=== PATIENT | female | born 1985 | race American Indian/Alaskan Native ===

== ENCOUNTER 2020-04-06 16:45 | Inpatient (IN) | payer SELFPAY ==
[2020-04-06] MEDS ORDERED: MORPHINE 4 MG/1 ML INJ IV ONE (21:07)
--- NOTE | 2020-04-06 21:19 | Emergency Department Report ---
HPI - General Chief Complaint: Chest Pain Time Seen by Provider: 04/06/20 20:58 - HPI HPI: This is a 34-year-old -[place] Citizen female who presents to the emergency department via EMS with a complaint of "pain all over" that has been going on for the past 2 weeks. It is associated with some shortness of breath. Patient denies any fever, vomiting, diarrhea, rash, headache. She has not taken anything for symptoms prior to presentation. She has a history of kwq-udjwkhh-avqbwzzif diabetes, GERD. She is a tobacco smoker but denies any illicit drug use. She does not have a primary care physician. No recent travel or sick contacts at home. Patient says that she was recently at [facility] for "a heart attack." No known aggravating or alleviating factors. ED Past Medical Hx - Past Medical History Previous Medical History?: Yes Hx Hypertension: Yes Hx Congestive Heart Failure: No Hx Diabetes: Yes Hx Asthma: No Hx COPD: No Hx HIV: No Additional medical history: gastroparesis - Surgical History Past Surgical History?: No - Social History Smoking Status: Current Every Day Smoker - Medications Home Medications: Home Medications Medication Instructions Recorded Confirmed Last Taken Type Promethazine [Phenergan] 25 mg PO Q6H PRN #10 tablet 09/21/13 09/25/13 09/22/13 Rx Ondansetron [Zofran Odt] 8 mg PO TID PRN #7 tab.rapdis 09/25/13 Unknown Rx Potassium Chloride [K-Dur] 10 meq PO QDAY #7 tablet 09/25/13 Unknown Rx Promethazine [Phenergan] 25 mg PO Q6H PRN #10 tablet 09/25/13 Unknown Rx Promethazine [Phenergan] 25 mg [place] QHS PRN #30 supp.rect 09/27/13 Unknown Rx levoFLOXacin [Levaquin TAB] 500 mg PO QDAY #7 tablet 09/27/13 Unknown Rx Naproxen [Naprosyn] 375 mg PO BID #20 tablet 10/09/13 Unknown Rx HYDROcodone/APAP 10-325 [[place] 1 each PO Q6HR PRN #20 tablet 10/18/13 Unknown Rx 10-325 mg TAB] Promethazine [Phenergan] 25 mg PO Q6H PRN #20 tablet 10/18/13 Unknown Rx oxyCODONE /ACETAMINOPHEN [Percocet 1 tab PO Q6HR PRN #14 tablet 12/09/13 Unknown Rx 5/325] Hyoscyamine Subl [Levsin Sl 0.125 0.125 mg SL Q6HR PRN #10 tablet 05/30/14 Unknown Rx TAB] Ondansetron [Zofran Odt] 4 mg PO Q6H PRN #10 tab.rapdis 05/30/14 Unknown Rx Pantoprazole [Protonix TAB] 40 mg PO QDAY #30 tablet 05/30/14 Unknown Rx Promethazine [Phenergan] 25 mg PO Q6H PRN #20 tablet 05/30/14 Unknown Rx metFORMIN [Glucophage] 500 mg PO BID #60 tablet 05/30/14 Unknown Rx oxyCODONE /ACETAMINOPHEN [Percocet 1 tab PO Q6HR PRN #10 tablet 05/30/14 Unknown Rx 5/325 mg] HYDROcodone/APAP 5-325 [[place] 1 each PO Q6HR PRN #14 tablet 07/12/14 Unknown Rx 5/325] ED Review of Systems ROS: Stated complaint: CHEST PAIN Other details as noted in HPI Comment: All other systems reviewed and negative Constitutional: denies: chills, fever Eyes: denies: eye pain, vision change ENT: denies: ear pain, throat pain Respiratory: shortness of breath. denies: cough Cardiovascular: chest pain. denies: edema Gastrointestinal: abdominal pain. denies: vomiting Genitourinary: denies: dysuria, discharge Musculoskeletal: back pain, myalgia. denies: joint swelling Skin: denies: rash, lesions Neurological: denies: weakness, numbness Physical Exam - Physical Exam Vital Signs: Vital Signs 04/06/20 21:06 Temperature 97.6 F Pulse Rate 102 H Respiratory 28 H Rate Blood Pressure 144/118 [Left] O2 Sat by Pulse 100 Oximetry Physical Exam: GENERAL: Patient is ill-appearing. HENT: Normocephalic. Atraumatic. Patient has moist mucous membranes. EYES: Extraocular motions are intact. Pupils equal reactive to light bilaterally. NECK: Supple. Trachea is midline. CHEST/LUNGS: Clear to auscultation. There is tachypnea with some accessory muscle use. HEART/CARDIOVASCULAR: Regular. There is mild tachycardia. There is no murmur. ABDOMEN: Abdomen is soft, nontender. Patient has normal bowel sounds. SKIN: Skin is warm and dry. NEURO: The patient is very sleepy but is otherwise easily arousable. Once awake she is alert and oriented, AAO x3. The patient has no focal neurologic deficits. Normal speech. MUSCULOSKELETAL: There is no tenderness or deformity. There is no limitation range of motion. ED Course Vital Signs 04/06/20 21:06 Temperature 97.6 F Pulse Rate 102 H Respiratory 28 H Rate Blood Pressure 144/118 [Left] O2 Sat by Pulse 100 Oximetry - Reevaluation(s) Reevaluation #1: 04/06/20 22:23 Nursing staff has tried multiple times to get a peripheral IV. I also looked with a ultrasound to both the bilateral upper extremities as well as looking for an EJ and I was unsuccessful. The patient has tachypnea, some borderline hypotension and is ill-appearing needing resuscitation. I have spoken with the patient in detail and gotten written consent for a central venous catheter placement. - Consultations Consultation #1: 04/07/20 01:03 I spoke to the environmental compliance technician on-call, Dr. Perez, regarding the patient's repeat EKG. There were some nonspecific ST elevations to the inferior leads without any other reciprocal changes. He agrees that this does not appear consistent with an ST elevation NM or require Internet Developer activation. He agrees with the plan for heparin and they will see the patient as a consult. - Central Line Placement Right IJ Consent Obtained: verbal consent, written consent Time Out Performed: Yes Patient Placed on Monitor/Pulse Ox: Yes MD Prep: mask, gown, gloves Central Line Prep: Chlorhexidine scrub Local Anesthesia Used: Lidocaine 1% Amount of Anesthesia Used (mls): 2 Ultrasound Used for Placement: Yes Central Line Lumen Inserted: triple Bloods Obtained for Lab: Yes Central Line Position: good blood return, all ports aspirated, flus, sutured in place with 2-0, sutured in place with nyl Post Procedure X-Ray: other (Catheter appears to be going to the ipsilateral subclavian vein) Patient Tolerated Procedure: well Complications: catheter malposition Right Femoral Consent Obtained: verbal consent, written consent Time Out Performed: Yes Patient Placed on Monitor/Pulse Ox: Yes Prep: mask, gown, gloves Central Line Prep: Chlorhexidine scrub Local Anesthesia Used: Lidocaine 1% Amount of Anesthesia Used (mls): 2 Ultrasound Used for Placement: Yes Central Line Lumen Inserted: triple Bloods Obtained for Lab: No Central Line Position: good blood return, all ports aspirated, flus, sutured in place with nyl Dressing Applied: Tegaderm, sterile gauze/tape Patient Tolerated Procedure: well Complications: none ED Medical Decision Making - Lab Data Result diagrams: 04/06/20 22:57 04/07/20 01:00 Lab Results 04/06/20 04/06/20 04/06/20 Range/Units 21:10 22:57 22:57 WBC 27.7 H (4.5-11.0) K/mm3 RBC 2.82 L (3.65-5.03) M/mm3 Hgb 8.3 L (10.1-14.3) gm/dl Hct 26.1 L (30.3-42.9) % MCV 93 (79-97) fl MCH 29 (28-32) pg MCHC 32 (30-34) % RDW 18.2 H (13.2-15.2) % Plt Count 423 (140-440) K/mm3 PT 16.2 H (12.2-14.9) Sec. INR 1.30 H (0.87-1.13) APTT 31.3 (24.2-36.6) Sec. D-Dimer 5535.12 H (0-234) ng/mlDDU VBG pH (7.320-7.420) Sodium (137-145) mmol/L Potassium (3.6-5.0) mmol/L Chloride (98-107) mmol/L Carbon Dioxide (22-30) mmol/L Anion Gap mmol/L BUN (7-17) mg/dL Creatinine (0.6-1.2) mg/dL Estimated GFR ml/min BUN/Creatinine Ratio % Glucose (65-100) mg/dL POC Glucose 533 H (70-105) mg/dL Ketones Quantitative (Negative) Calcium (8.4-10.2) mg/dL Phosphorus (2.5-4.5) mg/dL Magnesium (1.7-2.3) mg/dL Total Bilirubin (0.1-1.2) mg/dL AST (5-40) units/L ALT (7-56) units/L Alkaline Phosphatase (35-129) units/L Troponin T (0.00-0.029) ng/mL Total Protein (6.3-8.2) g/dL Albumin (3.9-5) g/dL Albumin/Globulin Ratio % Triglycerides (2-149) mg/dL Cholesterol (50-199) mg/dL LDL Cholesterol Direct (50-130) mg/dL HDL Cholesterol (40-59) mg/dL Cholesterol/HDL Ratio % Lipase (13-60) units/L HCG, Qual (Negative) Plasma/Serum Alcohol (0-0.07) % 04/06/20 04/06/20 04/06/20 Range/Units 22:57 22:57 22:57 WBC (4.5-11.0) K/mm3 RBC (3.65-5.03) M/mm3 Hgb (10.1-14.3) gm/dl Hct (30.3-42.9) % MCV (79-97) fl MCH (28-32) pg MCHC (30-34) % RDW (13.2-15.2) % Plt Count (140-440) K/mm3 PT (12.2-14.9) Sec. INR (0.87-1.13) APTT (24.2-36.6) Sec. D-Dimer (0-234) ng/mlDDU VBG pH (7.320-7.420) Sodium 125 L (137-145) mmol/L Potassium 3.6 (3.6-5.0) mmol/L Chloride 91.6 L (98-107) mmol/L Carbon Dioxide 3 L* (22-30) mmol/L Anion Gap 34 mmol/L BUN 33 H (7-17) mg/dL Creatinine 2.0 H (0.6-1.2) mg/dL Estimated GFR 35 ml/min BUN/Creatinine Ratio 17 % Glucose 593 H* (65-100) mg/dL POC Glucose (70-105) mg/dL Ketones Quantitative (Negative) Calcium 8.6 (8.4-10.2) mg/dL Phosphorus (2.5-4.5) mg/dL Magnesium (1.7-2.3) mg/dL Total Bilirubin 0.30 (0.1-1.2) mg/dL AST 11 (5-40) units/L ALT 14 (7-56) units/L Alkaline Phosphatase 94 (35-129) units/L Troponin T 0.343 H* (0.00-0.029) ng/mL Total Protein 7.1 (6.3-8.2) g/dL Albumin 2.5 L (3.9-5) g/dL Albumin/Globulin Ratio 0.5 % Triglycerides 138 (2-149) mg/dL Cholesterol 99 (50-199) mg/dL LDL Cholesterol Direct 40 L (50-130) mg/dL HDL Cholesterol 23 L (40-59) mg/dL Cholesterol/HDL Ratio 4.30 % Lipase 27 (13-60) units/L HCG, Qual Negative (Negative) Plasma/Serum Alcohol < 0.01 (0-0.07) % 04/06/20 04/06/20 04/07/20 Range/Units 22:57 22:57 01:00 WBC (4.5-11.0) K/mm3 RBC (3.65-5.03) M/mm3 Hgb (10.1-14.3) gm/dl Hct (30.3-42.9) % MCV (79-97) fl MCH (28-32) pg MCHC (30-34) % RDW (13.2-15.2) % Plt Count (140-440) K/mm3 PT (12.2-14.9) Sec. INR (0.87-1.13) APTT (24.2-36.6) Sec. D-Dimer (0-234) ng/mlDDU VBG pH 7.059 L* (7.320-7.420) Sodium (137-145) mmol/L Potassium (3.6-5.0) mmol/L Chloride (98-107) mmol/L Carbon Dioxide (22-30) mmol/L Anion Gap mmol/L BUN (7-17) mg/dL Creatinine (0.6-1.2) mg/dL Estimated GFR ml/min BUN/Creatinine Ratio % Glucose (65-100) mg/dL POC Glucose (70-105) mg/dL Ketones Quantitative Large (Negative) Calcium (8.4-10.2) mg/dL Phosphorus (2.5-4.5) mg/dL Magnesium (1.7-2.3) mg/dL Total Bilirubin (0.1-1.2) mg/dL AST (5-40) units/L ALT (7-56) units/L Alkaline Phosphatase (35-129) units/L Troponin T 0.338 H* (0.00-0.029) ng/mL Total Protein (6.3-8.2) g/dL Albumin (3.9-5) g/dL Albumin/Globulin Ratio % Triglycerides (2-149) mg/dL Cholesterol (50-199) mg/dL LDL Cholesterol Direct (50-130) mg/dL HDL Cholesterol (40-59) mg/dL Cholesterol/HDL Ratio % Lipase (13-60) units/L HCG, Qual (Negative) Plasma/Serum Alcohol (0-0.07) % 04/07/20 04/07/20 Range/Units 01:00 01:00 WBC (4.5-11.0) K/mm3 RBC (3.65-5.03) M/mm3 Hgb (10.1-14.3) gm/dl Hct (30.3-42.9) % MCV (79-97) fl MCH (28-32) pg MCHC (30-34) % RDW (13.2-15.2) % Plt Count (140-440) K/mm3 PT (12.2-14.9) Sec. INR (0.87-1.13) APTT (24.2-36.6) Sec. D-Dimer (0-234) ng/mlDDU VBG pH (7.320-7.420) Sodium 128 L (137-145) mmol/L Potassium 3.6 (3.6-5.0) mmol/L Chloride 94.7 L (98-107) mmol/L Carbon Dioxide 4 L* (22-30) mmol/L Anion Gap 33 mmol/L BUN 30 H (7-17) mg/dL Creatinine 2.1 H (0.6-1.2) mg/dL Estimated GFR 33 ml/min BUN/Creatinine Ratio 14 % Glucose 585 H* (65-100) mg/dL POC Glucose (70-105) mg/dL Ketones Quantitative (Negative) Calcium 7.9 L (8.4-10.2) mg/dL Phosphorus 6.30 H (2.5-4.5) mg/dL Magnesium 2.00 (1.7-2.3) mg/dL Total Bilirubin (0.1-1.2) mg/dL AST (5-40) units/L ALT (7-56) units/L Alkaline Phosphatase (35-129) units/L Troponin T (0.00-0.029) ng/mL Total Protein (6.3-8.2) g/dL Albumin (3.9-5) g/dL Albumin/Globulin Ratio % Triglycerides (2-149) mg/dL Cholesterol (50-199) mg/dL LDL Cholesterol Direct (50-130) mg/dL HDL Cholesterol (40-59) mg/dL Cholesterol/HDL Ratio % Lipase (13-60) units/L HCG, Qual (Negative) Plasma/Serum Alcohol (0-0.07) % - EKG Data -: EKG Interpreted by Me EKG shows normal: sinus rhythm (PVC), axis, intervals (Prolonged QTC), QRS complexes, ST-T waves Rate: normal - EKG Data When compared to previous EKG there are: no significant change Interpretation: unchanged when compared t (07/12/14) - Radiology Data Radiology results: report reviewed CHEST 1 VIEW [id number] INDICATION / CLINICAL INFORMATION: CP, line placement COMPARISON: 07/12/2014 FINDINGS: SUPPORT DEVICES: Right jugular central line is noted with progression bilaterally in the subclavian vein into the right axillary vein region. The physician is aware of this placement per the te chnologist. HEART / MEDIASTINUM: Stable LUNGS / PLEURA: Very poor degree of inspiration is seen. Congested appearance is noted and mild bilateral interstitial edema/infiltrates are seen. Right basilar atelectatic changes are noted. No pneumothorax. ADDITIONAL FINDINGS: No significant additional findings. - Medical Decision Making This patient presents to the emergency department with a complaint of pain everywhere. As part of that complaint, the patient has been having some generalized chest pain over the past 2 weeks. However the patient also mentions that she was recently admitted to [facility] for a heart attack. Patient said that she had a stent placement but is unable to tell me which artery was stented. The patient had an Accu-Chek upon arrival of about 550. We had some difficulty placing a peripheral IV. The patient had some borderline hypotension and I have suspicion the patient was in diabetic ketoacidosis, so the decision was made to place a central venous catheter for resuscitation. As per the procedure section, I placed a right IJ CVC, but the catheter went to the ipsilateral subclavian vein towards the axillary venous system. After this, I placed a right femoral CVC. The right IJ CVC was removed and pressure held. The patient's blood work shows a leukocytosis of 27,000. There is renal insufficiency with a creatinine of 2 and a GFR of about 35. The patient is in diabetic ketoacidosis with a blood sugar of about 590, and anion gap of 34, venous acidosis, and large serum ketones. The patient has been started on an insulin drip. The patient's first troponin came back elevated at 0.343. I spoke to [facility] cardiology regarding the patient's EKG but it did not appear to be a STEMI and require Internet Developer activation. However, with the elevated troponin the patient will be started on heparin. The patient will be admitted to the ICU and has been accepted for admission by the hospitalist, Dr. Rosas. Critical Care Time: Yes Critical care time in (mins) excluding proc time.: 45 Critical care attestation.: If time is entered above; I have spent that time in minutes in the direct care of this critically ill patient, excluding procedure time. Critical care time was spent on this patient in doing her initial evaluation, multiple reevaluations, ordering and interpretation of labs and imaging, insulin drip for her DKA, heparin for her NSTEMI, multiple discussions with the patient. This does not include the time spent doing the central line procedures. Critical Care Time: 45 minutes ED Disposition Clinical Impression: NSTEMI (non-ST elevated myocardial infarction), Renal insufficiency DKA (diabetic ketoacidoses) Qualifiers: Diabetes mellitus type: type 2 Diabetes mellitus complication detail: without coma Qualified Code(s): E11.10 - Type 2 diabetes mellitus with ketoacidosis without coma Disposition: OP ADMIT IP TO THIS HOSP Is pt being admited?: Yes Condition: Serious Time of Disposition: 01:04 HEART Score - HEART Score History: Slightly suspicious EKG: Non-specific Age: < 45 Risk factors: > 3 risk factors or hx of atherosclerotic disease Troponin: > 3x normal limit HEART Score: 5 - Critical Actions Critical Actions: 4-6 pts:12-16.6% risk of adverse cardiac event. Should be admitted
[2020-04-06] MEDS ORDERED: SODIUM CHLORIDE 0.9% 1000 ML 1,000 ML IV ONE (22:56)
[2020-04-06] MEDS ORDERED: MORPHINE 4 MG/1 ML INJ IM ONE (23:31)
[2020-04-06 23:51] LABS: Hematocrit 26.1 % (30.3-42.9); Hemoglobin 8.3 gm/dl (10.1-14.3); Mean Corpuscular HGB Conc 32 % (30-34); Mean Corpuscular Volume 93 fl (79-97); Platelet Count 423 K/mm3 (140-440); Red Blood Count 2.82 M/mm3 (3.65-5.03); Red Cell Distribution Width 18.2 % (13.2-15.2)
[2020-04-07 00:02] LABS: INR 1.3 (0.87-1.13)
[2020-04-07 00:03] LABS: Partial Thromboplastin Time 31.3 Sec. (24.2-36.6)
--- NOTE | 2020-04-07 00:06 | XRay Report ---
CHEST 1 VIEW 0155 INDICATION / CLINICAL INFORMATION: CP, line placement COMPARISON: 07/12/2014 FINDINGS: SUPPORT DEVICES: Right jugular central line is noted with progression bilaterally in the subclavian v ein into the right axillary vein region. The physician is aware of this placement per the technologis t. HEART / MEDIASTINUM: Stable LUNGS / PLEURA: Very poor degree of inspiration is seen. Congested appearance is noted and mild bilat eral interstitial edema/infiltrates are seen. Right basilar atelectatic changes are noted. No pneumot horax. ADDITIONAL FINDINGS: No significant additional findings. Signer Name: Flo Israel MD Signed: 04/07/2020 12:01 AM Workstation Name: [id number]
[2020-04-07 00:14] LABS: Albumin 2.5 g/dL (3.9-5); Calcium 8.6 mg/dL (8.4-10.2)
[2020-04-07] MEDS ORDERED: HEPARIN 10,000 UNITS/10 ML VIAL IV ONE ×2 (00:59→18:00)
[2020-04-07] MEDS ORDERED: INSULIN REGULAR, HUMAN 100 UNITS in SODIUM CHLORIDE 0.9% 99 ML IV SCH (01:00)
[2020-04-07] MEDS ORDERED: HEPARIN/ 0.45% NACL DRIP 25,000 UNIT/500 ML BAG IV SCH (01:00)
[2020-04-07 01:25] LABS: Calcium 7.9 mg/dL (8.4-10.2)
[2020-04-07] MEDS ORDERED: DEXTROSE 50% IN WATER (25GM) 50 ML SYRINGE IV PRN (02:05)
[2020-04-07] MEDS ORDERED: NITROGLYCERIN 0.4 MG TAB SUBL SL PRN (02:05)
[2020-04-07] MEDS ORDERED: ACETAMINOPHEN 325 MG TAB PO PRN (02:05)
[2020-04-07] MEDS ORDERED: MORPHINE 2 MG/1 ML INJ IV PRN (02:05)
--- NOTE | 2020-04-07 02:31 | History and Physical Report ---
History of Present Illness Date of examination: 04/07/20 Date of admission: 04/07/20 01:04 Chief complaint: 04/07/2020 History of present illness: 34-year-old -Swiss female with known history of diabetes mellitus, hypertension and history of gastroparesis presented to the emergency room today complaining of generalized body aches and pain which has been ongoing for about 2 weeks. She has also been having some shortness of breath but denies any cough. She denies any fever or chills, no nausea vomiting, no diarrhea, no headache or dizziness. Patient denies any sick contacts, no recent travel. She also indicates that she was recently at [facility] where she indicates that she recently had a heart attack. She also indicates that she had a cardiac stent. Work-up in the emergency room today reveals elevated troponin of 0.343. Patient was also found to be in DKA. Entertainment Usher-Dr. Perez was consulted by the ER physician. Patient has been started on heparin drip. Past History Past Medical History: diabetes, hypertension, other (Gastroparesis) Past Surgical History: No surgical history Social history: smoking (Current daily smoker) Family history: no significant family history Medications and Allergies Allergies Allergy/AdvReac Type Severity Reaction Status Date / Time No Known Allergies Allergy Verified 10/09/13 13:11 Home Medications Medication Instructions Recorded Confirmed Last Taken Type Promethazine [Phenergan] 25 mg PO Q6H PRN #10 tablet 09/21/13 09/25/13 09/22/13 Rx Ondansetron [Zofran Odt] 8 mg PO TID PRN #7 tab.rapdis 09/25/13 Unknown Rx Potassium Chloride [K-Dur] 10 meq PO QDAY #7 tablet 09/25/13 Unknown Rx Promethazine [Phenergan] 25 mg PO Q6H PRN #10 tablet 09/25/13 Unknown Rx Promethazine [Phenergan] 25 mg KS QHS PRN #30 supp.rect 09/27/13 Unknown Rx levoFLOXacin [Levaquin TAB] 500 mg PO QDAY #7 tablet 09/27/13 Unknown Rx Naproxen [Naprosyn] 375 mg PO BID #20 tablet 10/09/13 Unknown Rx HYDROcodone/APAP 10-325 [[place] 1 each PO Q6HR PRN #20 tablet 10/18/13 Unknown Rx 10-325 mg TAB] Promethazine [Phenergan] 25 mg PO Q6H PRN #20 tablet 10/18/13 Unknown Rx oxyCODONE /ACETAMINOPHEN [Percocet 1 tab PO Q6HR PRN #14 tablet 12/09/13 Unknown Rx 5/325] Hyoscyamine Subl [Levsin Sl 0.125 0.125 mg SL Q6HR PRN #10 tablet 05/30/14 Unknown Rx TAB] Ondansetron [Zofran Odt] 4 mg PO Q6H PRN #10 tab.rapdis 05/30/14 Unknown Rx Pantoprazole [Protonix TAB] 40 mg PO QDAY #30 tablet 05/30/14 Unknown Rx Promethazine [Phenergan] 25 mg PO Q6H PRN #20 tablet 05/30/14 Unknown Rx metFORMIN [Glucophage] 500 mg PO BID #60 tablet 05/30/14 Unknown Rx oxyCODONE /ACETAMINOPHEN [Percocet 1 tab PO Q6HR PRN #10 tablet 05/30/14 Unknown Rx 5/325 mg] HYDROcodone/APAP 5-325 [[place] 1 each PO Q6HR PRN #14 tablet 07/12/14 Unknown Rx 5/325] Active Meds: Active Medications Insulin Human Regular 100 (units/ Sodium Chloride) 100 mls @ 1 mls/hr IV TITR DENISE; Protocol Last Admin: 04/07/20 01:14 Dose: 1 units/hr, 1 mls/hr Documented by: Heparin Sodium/Sodium Chloride (Heparin/ 0.45% Nacl-25,000 Unit/500 Ml) 25,000 unit in 500 mls @ 20 mls/hr IV TITRATE DENISE; Protocol Last Admin: 04/07/20 01:56 Dose: 1,000 units/hr, 20 mls/hr Documented by: Review of Systems Constitutional: fatigue, no fever, no chills Ears, nose, mouth and throat: no nasal congestion, no sore throat Cardiovascular: chest pain, no palpitations Respiratory: no cough, no shortness of breath Gastrointestinal: abdominal pain, no nausea, no vomiting, no diarrhea Genitourinary Female: no pelvic pain, no flank pain, no dysuria, no hematuria Musculoskeletal: no neck pain, no low back pain Integumentary: no rash, no pruritis Neurological: no headaches, no confusion Psychiatric: no anxiety, no depression Exam - Constitutional Vitals: Temp Pulse Resp BP Pulse Ox 97.6 F 96 H 40 H 116/66 100 04/06/20 21:06 04/07/20 01:15 04/07/20 01:15 04/07/20 01:15 04/07/20 01:15 General appearance: Present: no acute distress, well-nourished - EENT Eyes: Present: PERRL, EOM intact. Absent: scleral icterus ENT: hearing intact, clear oral mucosa, dentition normal - Neck Neck: Present: supple, normal ROM - Respiratory Respiratory effort: normal Respiratory: bilateral: CTA - Cardiovascular Rhythm: regular Heart Sounds: Present: S1 & S2. Absent: gallop, systolic murmur, diastolic murmur, rub - Extremities Extremities: no ischemia, pulses intact, pulses symmetrical, No edema, Full ROM Peripheral Pulses: within normal limits - Abdominal General gastrointestinal: Present: soft, non-tender, non-distended, normal bowel sounds. Absent: mass - Integumentary Integumentary: Present: clear, warm, dry. Absent: rash - Musculoskeletal Musculoskeletal: strength equal bilaterally - Psychiatric Psychiatric: appropriate mood/affect, intact judgment & insight, memory intact, cooperative - Neurologic Neurologic: CNII-XII intact, no focal deficits, moves all extremities HEART Score - HEART Score History: Moderately suspicious EKG: Non-specific Age: < 45 Risk factors: > 3 risk factors or hx of atherosclerotic disease Troponin: Troponin T 0.338 ng/mL (0.00-0.029) H* 04/07/20 01:00 Troponin: > 3x normal limit HEART Score: 6 Results - Labs CBC & Chem 7: 04/07/20 02:57 04/07/20 02:57 Labs: Abnormal lab results 04/06/20 04/06/20 04/06/20 Range/Units 21:10 22:57 22:57 WBC 27.7 H (4.5-11.0) K/mm3 RBC 2.82 L (3.65-5.03) M/mm3 Hgb 8.3 L (10.1-14.3) gm/dl Hct 26.1 L (30.3-42.9) % RDW 18.2 H (13.2-15.2) % PT 16.2 H (12.2-14.9) Sec. INR 1.30 H (0.87-1.13) D-Dimer 5535.12 H (0-234) ng/mlDDU VBG pH (7.320-7.420) Sodium (137-145) mmol/L Chloride (98-107) mmol/L Carbon Dioxide (22-30) mmol/L BUN (7-17) mg/dL Creatinine (0.6-1.2) mg/dL Glucose (65-100) mg/dL POC Glucose 533 H (70-105) mg/dL Calcium (8.4-10.2) mg/dL Phosphorus (2.5-4.5) mg/dL Troponin T (0.00-0.029) ng/mL Albumin (3.9-5) g/dL 04/06/20 04/06/20 04/07/20 Range/Units 22:57 22:57 01:00 WBC (4.5-11.0) K/mm3 RBC (3.65-5.03) M/mm3 Hgb (10.1-14.3) gm/dl Hct (30.3-42.9) % RDW (13.2-15.2) % PT (12.2-14.9) Sec. INR (0.87-1.13) D-Dimer (0-234) ng/mlDDU VBG pH 7.059 L* (7.320-7.420) Sodium 125 L (137-145) mmol/L Chloride 91.6 L (98-107) mmol/L Carbon Dioxide 3 L* (22-30) mmol/L BUN 33 H (7-17) mg/dL Creatinine 2.0 H (0.6-1.2) mg/dL Glucose 593 H* (65-100) mg/dL POC Glucose (70-105) mg/dL Calcium (8.4-10.2) mg/dL Phosphorus (2.5-4.5) mg/dL Troponin T 0.343 H* 0.338 H* (0.00-0.029) ng/mL Albumin 2.5 L (3.9-5) g/dL 04/07/20 04/07/20 04/07/20 Range/Units 01:00 01:00 01:06 WBC (4.5-11.0) K/mm3 RBC (3.65-5.03) M/mm3 Hgb (10.1-14.3) gm/dl Hct (30.3-42.9) % RDW (13.2-15.2) % PT (12.2-14.9) Sec. INR (0.87-1.13) D-Dimer (0-234) ng/mlDDU VBG pH (7.320-7.420) Sodium 128 L (137-145) mmol/L Chloride 94.7 L (98-107) mmol/L Carbon Dioxide 4 L* (22-30) mmol/L BUN 30 H (7-17) mg/dL Creatinine 2.1 H (0.6-1.2) mg/dL Glucose 585 H* (65-100) mg/dL POC Glucose 469 H (70-105) mg/dL Calcium 7.9 L (8.4-10.2) mg/dL Phosphorus 6.30 H (2.5-4.5) mg/dL Troponin T (0.00-0.029) ng/mL Albumin (3.9-5) g/dL Assessment and Plan - Patient Problems (1) DKA (diabetic ketoacidoses) Current Visit: Yes Status: Acute Qualifiers: Diabetes mellitus type: type 2 Diabetes mellitus complication detail: with out coma Qualified Code(s): E11.10 - Type 2 diabetes mellitus with ketoac idosis without coma Plan to address problem: Patient placed on IV fluid and insulin drip. We will monitor Accu-Cheks closely. (2) NSTEMI (non-ST elevated myocardial infarction) Current Visit: Yes Status: Acute Plan to address problem: We will check serial cardiac enzymes. Patient will be placed on aspirin, sublingual nitroglycerin and IV morphine as needed for chest pain. Patient has also been placed on heparin drip. Consult placed to take up operator for further evaluation. (3) Tobacco abuse Current Visit: No Status: Chronic Plan to address problem: Counseled on quitting tobacco abuse. We will offer nicotine patch as needed. (4) DVT prophylaxis Current Visit: No Status: Acute Plan to address problem: Patient currently on heparin drip. (5) Full code status Current Visit: Yes Status: Acute Plan to address problem: Patient is a full code.
[2020-04-07 02:51] LABS: Chol/HDL Ratio 4.3 %
[2020-04-07] MEDS: D5W/0.45% NACL/KCL 20 MEQ 20 MEQ/1,000 ML BAG IV SCH ×2 (03:06→14:13)
[2020-04-07 03:32] LABS: Calcium 8.3 mg/dL (8.4-10.2)
[2020-04-07 03:42] LABS: Hematocrit 26.8 % (30.3-42.9); Hemoglobin 8.1 gm/dl (10.1-14.3); Mean Corpuscular HGB Conc 30 % (30-34); Mean Corpuscular Volume 94 fl (79-97); Platelet Count 416 K/mm3 (140-440); Red Blood Count 2.86 M/mm3 (3.65-5.03); Red Cell Distribution Width 18.4 % (13.2-15.2)
[2020-04-07 04:46] LABS: Total Cells Counted 200
[2020-04-07 04:47] LABS: Anisocytosis 1+; Band Neutrophils # (Manual) 0.6 K/mm3; Eosinophils % (Manual) 1.5 % (0.0-4.3); Platelet Estimate Consistent w Auto
[2020-04-07 06:12] LABS: Calcium 8.1 mg/dL (8.4-10.2)
[2020-04-07 06:41] LABS: Total Cells Counted 200
[2020-04-07 06:42] LABS: Anisocytosis 1+; Band Neutrophils # (Manual) 1.9 K/mm3; Platelet Estimate Consistent w Auto
[2020-04-07 07:55] LABS: Calcium 7.9 mg/dL (8.4-10.2)
[2020-04-07] MEDS: POTASSIUM CHLORIDE 10 MEQ 10 MEQ/100 ML BAG IV SCH ×4 (08:51→14:11)
[2020-04-07] MEDS ORDERED: POTASSIUM CHLORIDE 20 MEQ 20 MEQ/100 ML BAG IV SCH ×2 (09:00→20:00)
--- NOTE | 2020-04-07 11:46 | Progress Note ---
Assessment and Plan Assessment and plan: (1) DKA (diabetic ketoacidoses) Current Visit: Yes Status: Acute Qualifiers: Diabetes mellitus type: type 2 Diabetes mellitus complication detail: without coma Qualified Code(s): E11.10 - Type 2 diabetes mellitus with ketoacidosis without coma Plan to address problem: Continue insulin drip Continue IV fluids Monitor BMP. Start subcutaneous insulin once anion gap closes and discontinue insulin drip 2 hours after subacute insulin Repeat electrolytes and aim to keep potassium more than 4. Check magnesium with next BMP (2) NSTEMI (non-ST elevated myocardial infarction) Current Visit: Yes Status: Acute Plan to address problem: Troponin is elevated Cardiology to see Remains on heparin drip (3) Tobacco abuse Current Visit: No Status: Chronic Plan to address problem: Counseled on quitting tobacco abuse. We will offer nicotine patch as needed. (4) DVT prophylaxis Current Visit: No Status: Acute Plan to address problem: Patient currently on heparin drip. (5) Full code status Current Visit: Yes Status: Acute Plan to address problem: Patient is a full code. History Interval history: Patient seen and examined at bedside this morning Patient is lethargic Remains on insulin drip On heparin drip as well for elevated troponin. Cardiology to evaluate. Hospitalist Physical - Physical exam Narrative exam: VITAL SIGNS: Reviewed. GENERAL: Awake HEAD: No signs of head trauma. EYES: Pupils are equal. Extraocular motions intact. MOUTH: Oropharynx is normal. NECK: No adenopathy, no JVD. CHEST: Chest with diminished breath sounds bilaterally. No wheezes, rales, or rhonchi. CARDIAC: normal S1 and S2, without murmurs, gallops, or rubs. ABDOMEN: Soft, slight tenderness on palpation. Bowel sounds positive MUSCULOSKELETAL: No edema NEUROLOGIC EXAM: Alert and oriented x3. No focal neurologic deficits SKIN: No obvious lesions - Constitutional Vitals: Temp Pulse Resp BP Pulse Ox 97.6 F 106 H 37 H 119/64 100 04/06/20 21:06 04/07/20 07:00 04/07/20 07:00 04/07/20 07:00 04/07/20 06:30 HEART Score - HEART Score EKG: Non-specific Age: < 45 Risk factors: > 3 risk factors or hx of atherosclerotic disease Troponin: Troponin T 0.391 ng/mL (0.00-0.029) H* 04/07/20 09:00 Troponin: > 3x normal limit - Critical Actions Critical Actions: 4-6 pts:12-16.6% risk of adverse cardiac event. Should be admitted Results - Labs CBC & Chem 7: 04/07/20 02:57 04/07/20 09:00 Labs: Laboratory Last Values WBC 26.6 K/mm3 (4.5-11.0) H 04/07/20 02:57 RBC 2.86 M/mm3 (3.65-5.03) L 04/07/20 02:57 Hgb 8.1 gm/dl (10.1-14.3) L 04/07/20 02:57 Hct 26.8 % (30.3-42.9) L 04/07/20 02:57 MCV 94 fl (79-97) 04/07/20 02:57 MCH 28 pg (28-32) 04/07/20 02:57 MCHC 30 % (30-34) 04/07/20 02:57 RDW 18.4 % (13.2-15.2) H 04/07/20 02:57 Plt Count 416 K/mm3 (140-440) 04/07/20 02:57 Add Manual Diff Complete 04/07/20 02:57 Total Counted 200 04/07/20 02:57 Seg Neuts % (Manual) 75.0 % (40.0-70.0) H 04/07/20 02:57 Band Neutrophils % 7.0 % 04/07/20 02:57 Lymphocytes % (Manual) 14.0 % (13.4-35.0) 04/07/20 02:57 Monocytes % (Manual) 4.0 % (0.0-7.3) 04/07/20 02:57 Eosinophils % (Manual) 1.5 % (0.0-4.3) 04/06/20 22:57 Nucleated RBC % Not Reportable 04/07/20 02:57 Seg Neutrophils # Man 20.0 K/mm3 (1.8-7.7) H 04/07/20 02:57 Band Neutrophils # 1.9 K/mm3 04/07/20 02:57 Lymphocytes # (Manual) 3.7 K/mm3 (1.2-5.4) 04/07/20 02:57 Abs React Lymphs (Man) 0.0 K/mm3 04/07/20 02:57 Monocytes # (Manual) 1.1 K/mm3 (0.0-0.8) H 04/07/20 02:57 Eosinophils # (Manual) 0.0 K/mm3 (0.0-0.4) 04/07/20 02:57 Basophils # (Manual) 0.0 K/mm3 (0.0-0.1) 04/07/20 02:57 Metamyelocytes # 0.0 K/mm3 04/07/20 02:57 Myelocytes # 0.0 K/mm3 04/07/20 02:57 Promyelocytes # 0.0 K/mm3 04/07/20 02:57 Blast Cells # 0.0 K/mm3 04/07/20 02:57 WBC Morphology Not Reportable 04/07/20 02:57 Hypersegmented Neuts Not Reportable 04/07/20 02:57 Hyposegmented Neuts Not Reportable 04/07/20 02:57 Hypogranular Neuts Not Reportable 04/07/20 02:57 Smudge Cells Not Reportable 04/07/20 02:57 Toxic Granulation Not Reportable 04/07/20 02:57 Toxic Vacuolation Not Reportable 04/07/20 02:57 Dohle Bodies Not Reportable 04/07/20 02:57 Pelger-Huet Anomaly Not Reportable 04/07/20 02:57 Kelvin Rods Not Reportable 04/07/20 02:57 Platelet Estimate Consistent w auto 04/07/20 02:57 Clumped Platelets Not Reportable 04/07/20 02:57 Plt Clumps, EDTA Not Reportable 04/07/20 02:57 Large Platelets Not Reportable 04/07/20 02:57 Giant Platelets Not Reportable 04/07/20 02:57 Platelet Satelliting Not Reportable 04/07/20 02:57 Plt Morphology Comment Not Reportable 04/07/20 02:57 RBC Morphology Not Reportable 04/07/20 02:57 Dimorphic RBCs Not Reportable 04/07/20 02:57 Polychromasia Not Reportable 04/07/20 02:57 Hypochromasia Not Reportable 04/07/20 02:57 Poikilocytosis Not Reportable 04/07/20 02:57 Anisocytosis 1+ 04/07/20 02:57 Microcytosis Not Reportable 04/07/20 02:57 Macrocytosis Not Reportable 04/07/20 02:57 Spherocytes Not Reportable 04/07/20 02:57 Pappenheimer Bodies Not Reportable 04/07/20 02:57 Sickle Cells Not Reportable 04/07/20 02:57 Target Cells Not Reportable 04/07/20 02:57 Tear Drop Cells Not Reportable 04/07/20 02:57 Ovalocytes Not Reportable 04/07/20 02:57 Helmet Cells Not Reportable 04/07/20 02:57 Rosenberg-Glendo Bodies Not Reportable 04/07/20 02:57 [place] Rings Not Reportable 04/07/20 02:57 [place] Cells Not Reportable 04/07/20 02:57 Bite Cells Not Reportable 04/07/20 02:57 Crenated Cell Not Reportable 04/07/20 02:57 Elliptocytes Not Reportable 04/07/20 02:57 Acanthocytes (Spur) Not Reportable 04/07/20 02:57 Rouleaux Not Reportable 04/07/20 02:57 Hemoglobin C Crystals Not Reportable 04/07/20 02:57 Schistocytes Not Reportable 04/07/20 02:57 Malaria parasites Not Reportable 04/07/20 02:57 [place] Bodies Not Reportable 04/07/20 02:57 Hem Pathologist Commnt No 04/07/20 02:57 PT 16.2 Sec. (12.2-14.9) H 04/06/20 22:57 INR 1.30 (0.87-1.13) H 04/06/20 22:57 APTT 31.3 Sec. (24.2-36.6) 04/06/20 22:57 D-Dimer 5535.12 ng/mlDDU (0-234) H 04/06/20 22:57 VBG pH 7.059 (7.320-7.420) L* 04/06/20 22:57 Sodium 128 mmol/L (137-145) L 04/07/20 09:00 Potassium 3.2 mmol/L (3.6-5.0) L 04/07/20 09:00 Chloride 100.1 mmol/L (98-107) 04/07/20 09:00 Carbon Dioxide 10 mmol/L (22-30) L 04/07/20 09:00 Anion Gap 21 mmol/L 04/07/20 09:00 BUN 39 mg/dL (7-17) H 04/07/20 09:00 Creatinine 2.3 mg/dL (0.6-1.2) H 04/07/20 09:00 Estimated GFR 29 ml/min 04/07/20 09:00 BUN/Creatinine Ratio 17 % 04/07/20 09:00 Glucose 279 mg/dL (65-100) H 04/07/20 09:00 POC Glucose 231 mg/dL (70-105) H 04/07/20 09:00 Ketones Quantitative Large (Negative) 04/06/20 22:57 Calcium 8.0 mg/dL (8.4-10.2) L 04/07/20 09:00 Phosphorus 5.00 mg/dL (2.5-4.5) H D 04/07/20 02:57 Magnesium 2.10 mg/dL (1.7-2.3) 04/07/20 02:57 Total Bilirubin 0.30 mg/dL (0.1-1.2) 04/06/20 22:57 AST 11 units/L (5-40) 04/06/20 22:57 ALT 14 units/L (7-56) 04/06/20 22:57 Alkaline Phosphatase 94 units/L (35-129) 04/06/20 22:57 Troponin T 0.391 ng/mL (0.00-0.029) H* 04/07/20 09:00 Total Protein 7.1 g/dL (6.3-8.2) 04/06/20 22:57 Albumin 2.5 g/dL (3.9-5) L 04/06/20 22:57 Albumin/Globulin Ratio 0.5 % 04/06/20 22:57 Triglycerides 138 mg/dL (2-149) 04/06/20 22:57 Cholesterol 99 mg/dL (50-199) 04/06/20 22:57 LDL Cholesterol Direct 40 mg/dL (50-130) L 04/06/20 22:57 HDL Cholesterol 23 mg/dL (40-59) L 04/06/20 22:57 Cholesterol/HDL Ratio 4.30 % 04/06/20 22:57 Lipase 27 units/L (13-60) 04/06/20 22:57 HCG, Qual Negative (Negative) 04/06/20 22:57 Plasma/Serum Alcohol < 0.01 % (0-0.07) 04/06/20 22:57 Jeter/IV: IV Catheter Type [Right Triple Lumen Cath Femoral] IV Catheter Type [Right Triple Lumen Cath Subclavian] IV Catheter Type [Right Peripheral IV Antecubital] Active Medications - Current Medications Current Medications: Generic Name Dose Route Start Last Admin Trade Name Freq PRN Reason Stop Dose Admin Acetaminophen 650 mg 04/07/20 02:05 Acetaminophen 325 Mg Tab PO Q6H PRN Pain, Mild (1-3) Aspirin 325 mg 04/08/20 10:00 Aspirin Ec 325 Mg Tab PO QDAY DENISE Dextrose 0 ml 04/07/20 02:05 Dextrose 50% In Water (25gm) 50 Ml Syringe IV Q30MIN PRN Hypoglycemia Protocol Insulin Human Regular 100 100 mls @ 1 mls/hr 04/07/20 01:00 04/07/20 09:14 units/ Sodium Chloride IV 4 units/hr TITR DENISE 4 mls/hr Titration Protocol 1 UNITS/HR Heparin Sodium/Sodium Chloride 25,000 unit in 500 mls @ 20 mls/hr 04/07/20 01:00 04/07/20 01:56 Heparin/ 0.45% Nacl-25,000 Unit/500 Ml IV 1,000 units/hr TITRATE DENISE 20 mls/hr Administration Protocol 1,000 UNITS/HR Potassium Chloride/Dextrose/Sod Cl 20 meq in 1,000 mls @ 125 mls/hr 04/07/20 03:00 04/07/20 03:06 D5w/0.45% Nacl/Kcl 20 Meq IV 125 mls/hr DIRECT DENISE Administration Potassium Chloride 10 meq in 100 mls @ 100 mls/hr 04/07/20 09:00 04/07/20 10:21 Kcl 10meq/100ml IV 04/07/20 12:59 100 mls/hr Q1H DENISE Administration Potassium Chloride 20 meq in 100 mls @ 100 mls/hr 04/07/20 09:00 Kcl 20meq/100ml IV 04/07/20 10:59 Q1H DENISE Morphine Sulfate 2 mg 04/07/20 02:05 Morphine 2 Mg/1 Ml Inj IV Q5MIN PRN Chest Pain Nitroglycerin 0.4 mg 04/07/20 02:05 Nitroglycerin 0.4 Mg Tab Subl SL Q5M PRN Chest Pain Sodium Chloride 10 ml 04/07/20 10:00 Sodium Chloride 0.9% 10 Ml Flush Syringe IV BID DENISE Sodium Chloride 10 ml 04/07/20 02:05 Sodium Chloride 0.9% 10 Ml Flush Syringe IV PRN PRN LINE FLUSH Nutrition/Malnutrition Assess - Dietary Evaluation Nutrition/Malnutrition Findings: Nutrition Notes Start: 04/07/20 09:05 Freq: Status: Active Protocol: Document 04/07/20 09:05 (Rec: 04/07/20 09:06 [email or web address]) Nutrition Notes Need for Assessment generated from: MD Order Initial or Follow up Brief Note Current Diagnosis Diabetes,Hypertension Other Pertinent Diagnosis gastroparesis, DKA, NSTEMI, hx of MT Current Diet NPO Subjective/Other Information MD order for diet education. Pt on hold in ED and unable to see at this time. Nutrition Intervention Follow-Up By: 04/09/20 Additional Comments FU for diet education
--- NOTE | 2020-04-07 13:29 | Consultation ---
History of Present Illness Consult date: 04/07/20 Requesting physician: NELLI TOBIN Consult reason: abnormal cardiac enzymes, chest pain History of present illness: The pt is a 34-year-old female with a past medical history of reported CAD with AMI and PCI last week at [facility], diabetes mellitus, hypertension, gastroparesis, tobacco smoker. She is previously unknown to our practice. She presented with c/o generalized body aches, including pain across her anterior chest into her lower abdomen, for approx 2 weeks prior to arrival. Pt reports she is supposed to take insulin at home, however, she ran out and has not taken any anti- diabetic medications in over a month. Following arrival, she was diagnosed with DKA. She was also found to have elevated troponin and has been initiated on heparin gtt. Past History Past Medical History: CAD, diabetes, hypertension, other (Gastroparesis) Past Surgical History: No surgical history Social history: smoking (Current daily smoker) Family history: no significant family history Medications and Allergies Allergies Allergy/AdvReac Type Severity Reaction Status Date / Time No Known Allergies Allergy Verified 10/09/13 13:11 Home Medications Medication Instructions Recorded Confirmed Last Taken Type Promethazine [Phenergan] 25 mg PO Q6H PRN #10 tablet 09/21/13 09/25/13 09/22/13 Rx Ondansetron [Zofran Odt] 8 mg PO TID PRN #7 tab.rapdis 09/25/13 Unknown Rx Potassium Chloride [K-Dur] 10 meq PO QDAY #7 tablet 09/25/13 Unknown Rx Promethazine [Phenergan] 25 mg PO Q6H PRN #10 tablet 09/25/13 Unknown Rx Promethazine [Phenergan] 25 mg [place] QHS PRN #30 supp.rect 09/27/13 Unknown Rx levoFLOXacin [Levaquin TAB] 500 mg PO QDAY #7 tablet 09/27/13 Unknown Rx Naproxen [Naprosyn] 375 mg PO BID #20 tablet 10/09/13 Unknown Rx HYDROcodone/APAP 10-325 [[place] 1 each PO Q6HR PRN #20 tablet 10/18/13 Unknown Rx 10-325 mg TAB] Promethazine [Phenergan] 25 mg PO Q6H PRN #20 tablet 10/18/13 Unknown Rx oxyCODONE /ACETAMINOPHEN [Percocet 1 tab PO Q6HR PRN #14 tablet 12/09/13 Unknown Rx 5/325] Hyoscyamine Subl [Levsin Sl 0.125 0.125 mg SL Q6HR PRN #10 tablet 05/30/14 Unknown Rx TAB] Ondansetron [Zofran Odt] 4 mg PO Q6H PRN #10 tab.rapdis 05/30/14 Unknown Rx Pantoprazole [Protonix TAB] 40 mg PO QDAY #30 tablet 05/30/14 Unknown Rx Promethazine [Phenergan] 25 mg PO Q6H PRN #20 tablet 05/30/14 Unknown Rx metFORMIN [Glucophage] 500 mg PO BID #60 tablet 05/30/14 Unknown Rx oxyCODONE /ACETAMINOPHEN [Percocet 1 tab PO Q6HR PRN #10 tablet 05/30/14 Unknown Rx 5/325 mg] HYDROcodone/APAP 5-325 [[place] 1 each PO Q6HR PRN #14 tablet 07/12/14 Unknown Rx 5/325] Active Meds: Active Medications Acetaminophen (Acetaminophen 325 Mg Tab) 650 mg PO Q6H PRN PRN Reason: Pain, Mild (1-3) Aspirin (Aspirin Ec 325 Mg Tab) 325 mg PO QDAY DENISE Dextrose (Dextrose 50% In Water (25gm) 50 Ml Syringe) 0 ml IV Q30MIN PRN; Protocol PRN Reason: Hypoglycemia Insulin Human Regular 100 (units/ Sodium Chloride) 100 mls @ 1 mls/hr IV TITR DENISE; Protocol Last Titration: 04/07/20 12:21 Dose: 3 units/hr, 3 mls/hr Documented by: Heparin Sodium/Sodium Chloride (Heparin/ 0.45% Nacl-25,000 Unit/500 Ml) 25,000 unit in 500 mls @ 20 mls/hr IV TITRATE DENISE; Protocol Last Admin: 04/07/20 01:56 Dose: 1,000 units/hr, 20 mls/hr Documented by: Potassium Chloride/Dextrose/Sod Cl (D5w/0.45% Nacl/Kcl 20 Meq) 20 meq in 1,000 mls @ 125 mls/hr IV DIRECT DENISE Last Admin: 04/07/20 03:06 Dose: 125 mls/hr Documented by: Potassium Chloride (Kcl 20meq/100ml) 20 meq in 100 mls @ 100 mls/hr IV Q1H DENISE Stop: 12/28/20 10:59 Morphine Sulfate (Morphine 2 Mg/1 Ml Inj) 2 mg IV Q5MIN PRN PRN Reason: Chest Pain Nitroglycerin (Nitroglycerin 0.4 Mg Tab Subl) 0.4 mg SL Q5M PRN PRN Reason: Chest Pain Sodium Chloride (Sodium Chloride 0.9% 10 Ml Flush Syringe) 10 ml IV BID [facility] Sodium Chloride (Sodium Chloride 0.9% 10 Ml Flush Syringe) 10 ml IV PRN PRN PRN Reason: LINE FLUSH Review of Systems Constitutional: other (generalized body aches), no fever, no chills, no sweats Ears, nose, mouth and throat: no ear pain, no nose pain, no sinus pressure, no sinus pain Cardiovascular: chest pain, no orthopnea, no palpitations, no rapid/irregular heart beat, no edema, no syncope, no lightheadedness, no shortness of breath, no dyspnea on exertion, no leg edema Respiratory: no cough, no shortness of breath, no dyspnea on exertion, no congestion, no wheezing, no pain on inspiration Gastrointestinal: abdominal pain, no nausea, no vomiting, no diarrhea, no constipation, no change in bowel habits Genitourinary Female: no pelvic pain, no flank pain, no dysuria, no urinary frequency, no urgency Musculoskeletal: no neck stiffness, no neck pain, no shooting arm pain, no arm numbness/tingling, no low back pain, no shooting leg pain Integumentary: no rash, no pruritis, no redness, no sores, no wounds Neurological: no head injury, no paralysis, no weakness, no parathesias, no numbness, no tingling, no seizures, no syncope Psychiatric: no anxiety Endocrine: high blood sugars, no cold intolerance, no heat intolerance Hematologic/Lymphatic: no easy bruising Allergic/Immunologic: no urticaria Physical Examination Vital Signs Resp 14 04/06/20 20:54 General appearance: no acute distress HEENT: Positive: PERRL, Normocephaly, Mucus Membranes Moist Neck: Positive: neck supple, trachea midline Cardiac: Positive: Reg Rate and Rhythm, S1/S2 Lungs: Positive: Decreased Breath Sounds Neuro: Positive: Grossly Intact Abdomen: Negative: Tender Skin: Negative: Rash Musculoskeletal: No Pain Extremities: Absent: edema Results 04/07/20 02:57 04/07/20 09:00 Cardiac Enzymes 04/06/20 Range/Units 22:57 AST 11 (5-40) units/L Coagulation 04/06/20 Range/Units 22:57 PT 16.2 H (12.2-14.9) Sec. INR 1.30 H (0.87-1.13) APTT 31.3 (24.2-36.6) Sec. Lipids 04/06/20 Range/Units 22:57 Triglycerides 138 (2-149) mg/dL Cholesterol 99 (50-199) mg/dL HDL Cholesterol 23 L (40-59) mg/dL Cholesterol/HDL Ratio 4.30 % CBC 04/06/20 04/07/20 Range/Units 22:57 02:57 WBC 27.7 H 26.6 H (4.5-11.0) K/mm3 RBC 2.82 L 2.86 L (3.65-5.03) M/mm3 Hgb 8.3 L 8.1 L (10.1-14.3) gm/dl Hct 26.1 L 26.8 L (30.3-42.9) % Plt Count 423 416 (140-440) K/mm3 Comprehensive Metabolic Panel 04/06/20 04/07/20 04/07/20 Range/Units 22:57 01:00 02:57 Sodium 125 L 128 L 130 L (137-145) mmol/L Potassium 3.6 3.6 3.0 L (3.6-5.0) mmol/L Chloride 91.6 L 94.7 L 98.4 (98-107) mmol/L Carbon Dioxide 3 L* 4 L* 3 L* (22-30) mmol/L BUN 33 H 30 H 35 H (7-17) mg/dL Creatinine 2.0 H 2.1 H 2.3 H (0.6-1.2) mg/dL Glucose 593 H* 585 H* 411 H (65-100) mg/dL Calcium 8.6 7.9 L 8.3 L (8.4-10.2) mg/dL AST 11 (5-40) units/L ALT 14 (7-56) units/L Alkaline Phosphatase 94 (35-129) units/L Total Protein 7.1 (6.3-8.2) g/dL Albumin 2.5 L (3.9-5) g/dL 04/07/20 04/07/20 04/07/20 Range/Units 05:09 07:15 09:00 Sodium 132 L 128 L 128 L (137-145) mmol/L Potassium 2.7 L* 2.7 L* 3.2 L (3.6-5.0) mmol/L Chloride 100.8 99.6 100.1 (98-107) mmol/L Carbon Dioxide 6 L* 10 L 10 L (22-30) mmol/L BUN 36 H 38 H 39 H (7-17) mg/dL Creatinine 2.2 H 2.3 H 2.3 H (0.6-1.2) mg/dL Glucose 307 H 263 H 279 H (65-100) mg/dL Calcium 8.1 L 7.9 L 8.0 L (8.4-10.2) mg/dL AST (5-40) units/L ALT (7-56) units/L Alkaline Phosphatase (35-129) units/L Total Protein (6.3-8.2) g/dL Albumin (3.9-5) g/dL - Imaging and Cardiology Echo: pending EKG: report reviewed, image reviewed EKG interpretations - Telemetry EKG Rhythm: Sinus Rhythm - EKG Sinus rhythms and dysrhythmias: sinus rhythm Assessment and Plan Agree with heparin gtt. Cont to trend Luna and f/u ECG in AM. Obtain tte. Initiate ASA, statin, plavix (pt is unsure which anti-platelet medication she is prescribed to take at home), lopressor, Imdur. No [facility] records available in [facility] or [place] EMR. Attempt to obtain medical records from [facility]. Pt may ultimately require repeat coronary angiography once metabolic issues are adequately managed and renal function is optimized. Will follow. The patient has been seen in conjunction with Dr. Veras who agrees with the assessment and plan of care. - Patient Problems (1) DKA (diabetic ketoacidoses) Current Visit: Yes Status: Acute Qualifiers: Diabetes mellitus type: type 2 Diabetes mellitus complication detail: without coma Qualified Code(s): E11.10 - Type 2 diabetes mellitus with ketoacidosis without coma (2) NSTEMI (non-ST elevated myocardial infarction) Current Visit: Yes Status: Acute (3) CAD (coronary artery disease) Current Visit: Yes Status: Chronic Plan to address problem: per pt report (4) Stented coronary artery Current Visit: Yes Status: Chronic Plan to address problem: per pt report (5) HTN (hypertension) Current Visit: Yes Status: Chronic (6) Diabetes Current Visit: Yes Status: Chronic (7) Gastroparesis Current Visit: Yes Status: Chronic (8) Obesity Current Visit: Yes Status: Chronic (9) Tobacco abuse Current Visit: Yes Status: Chronic (10) Anemia Current Visit: Yes Status: Acute (11) Leukocytosis Current Visit: Yes Status: Acute (12) Acidosis Current Visit: Yes Status: Acute (13) Hyponatremia Current Visit: Yes Status: Acute (14) Hypokalemia Current Visit: Yes Status: Acute (15) ARF (acute renal failure) Current Visit: Yes Status: Acute
[2020-04-07 16:26] LABS: Calcium 7.9 mg/dL (8.4-10.2)
--- NOTE | 2020-04-07 16:35 | Vascular Lab Report ---
DUPLEX DOPPLER LOWER EXTREMITY VEINS, BILATERAL INDICATION / CLINICAL INFORMATION: Elevated ddimer. TECHNIQUE: Duplex doppler imaging was performed through the veins of both lower extremities using venous bessy kady and other maneuvers. COMPARISON: None available. FINDINGS: RIGHT COMMON FEMORAL VEIN: Negative. RIGHT FEMORAL VEIN: Negative. RIGHT POPLITEAL VEIN: Negative. RIGHT CALF VEINS: Negative. LEFT COMMON FEMORAL VEIN: Negative. LEFT FEMORAL VEIN: Negative. LEFT POPLITEAL VEIN: Negative. LEFT CALF VEINS: Negative. ADDITIONAL FINDINGS: None. IMPRESSION: 1. No sonographic evidence for DVT in either lower extremity. Signer Name: Yahir Combs MD Signed: 04/07/2020 4:30 PM Workstation Name: [id number]
[2020-04-07] MEDS ORDERED: HEPARIN 5,000 UNIT/1 ML VIAL ONE (17:20)
[2020-04-07] MEDS ORDERED: HEPARIN 1,000 UNIT/1 ML VIAL IV ONE (17:27)
[2020-04-07] MEDS ORDERED: MAGNESIUM SULFATE 2 GM/50 ML BAG IV ONE (17:35)
[2020-04-07] MEDS ORDERED: POTASSIUM CHLORIDE 10 MEQ 10 MEQ/100 ML BAG IV SCH (18:00)
--- NOTE | 2020-04-07 18:29 | Consultation ---
History of Present Illness Consult date: 04/07/20 Requesting physician: YEFRI CARREON Reason for consult: other (DKA; Severe Sepsis) History of present illness: PCCM CONSULT NOTE (Full dictation # [id number]) Please see dictated notes for full details Past History Past Medical History: CAD, diabetes, hypertension, other (Gastroparesis) Past Surgical History: No surgical history Social history: smoking (Current daily smoker) Family history: no significant family history Medications and Allergies Allergies Allergy/AdvReac Type Severity Reaction Status Date / Time No Known Allergies Allergy Verified 10/09/13 13:11 Home Medications Medication Instructions Recorded Confirmed Last Taken Type Promethazine [Phenergan] 25 mg PO Q6H PRN #10 tablet 09/21/13 09/25/13 09/22/13 Rx Ondansetron [Zofran Odt] 8 mg PO TID PRN #7 tab.rapdis 09/25/13 Unknown Rx Potassium Chloride [K-Dur] 10 meq PO QDAY #7 tablet 09/25/13 Unknown Rx Promethazine [Phenergan] 25 mg PO Q6H PRN #10 tablet 09/25/13 Unknown Rx Promethazine [Phenergan] 25 mg [place] QHS PRN #30 supp.rect 09/27/13 Unknown Rx levoFLOXacin [Levaquin TAB] 500 mg PO QDAY #7 tablet 09/27/13 Unknown Rx Naproxen [Naprosyn] 375 mg PO BID #20 tablet 10/09/13 Unknown Rx HYDROcodone/APAP 10-325 [[place] 1 each PO Q6HR PRN #20 tablet 10/18/13 Unknown Rx 10-325 mg TAB] Promethazine [Phenergan] 25 mg PO Q6H PRN #20 tablet 10/18/13 Unknown Rx oxyCODONE /ACETAMINOPHEN [Percocet 1 tab PO Q6HR PRN #14 tablet 12/09/13 Unknown Rx 5/325] Hyoscyamine Subl [Levsin Sl 0.125 0.125 mg SL Q6HR PRN #10 tablet 05/30/14 Unknown Rx TAB] Ondansetron [Zofran Odt] 4 mg PO Q6H PRN #10 tab.rapdis 05/30/14 Unknown Rx Pantoprazole [Protonix TAB] 40 mg PO QDAY #30 tablet 05/30/14 Unknown Rx Promethazine [Phenergan] 25 mg PO Q6H PRN #20 tablet 05/30/14 Unknown Rx metFORMIN [Glucophage] 500 mg PO BID #60 tablet 05/30/14 Unknown Rx oxyCODONE /ACETAMINOPHEN [Percocet 1 tab PO Q6HR PRN #10 tablet 05/30/14 Unknown Rx 5/325 mg] HYDROcodone/APAP 5-325 [[place] 1 each PO Q6HR PRN #14 tablet 07/12/14 Unknown Rx 5/325] Active Meds: Active Medications Acetaminophen (Acetaminophen 325 Mg Tab) 650 mg PO Q6H PRN PRN Reason: Pain, Mild (1-3) Aspirin (Aspirin 81 Mg Tab Chew) 81 mg PO QDAY DENISE Atorvastatin Calcium (Atorvastatin 40 Mg Tab) 40 mg PO QHS DENISE Clopidogrel Bisulfate (Clopidogrel 75 Mg Tab) 75 mg PO QDAY DENISE Dextrose (Dextrose 50% In Water (25gm) 50 Ml Syringe) 0 ml IV Q30MIN PRN; Protocol PRN Reason: Hypoglycemia Insulin Human Regular 100 (units/ Sodium Chloride) 100 mls @ 1 mls/hr IV TITR DENISE; Protocol Last Titration: 04/07/20 17:40 Dose: 4 units/hr, 4 mls/hr Documented by: Heparin Sodium/Sodium Chloride (Heparin/ 0.45% Nacl-25,000 Unit/500 Ml) 25,000 unit in 500 mls @ 20 mls/hr IV TITRATE DENISE; Protocol Last Admin: 04/07/20 01:56 Dose: 1,000 units/hr, 20 mls/hr Documented by: Potassium Chloride/Dextrose/Sod Cl (D5w/0.45% Nacl/Kcl 20 Meq) 20 meq in 1,000 mls @ 125 mls/hr IV DIRECT DENISE Last Admin: 04/07/20 14:13 Dose: 125 mls/hr Documented by: Potassium Chloride (Kcl 20meq/100ml) 20 meq in 100 mls @ 100 mls/hr IV Q1H DENISE Stop: 04/07/20 19:59 Potassium Chloride (Kcl 10meq/100ml) 10 meq in 100 mls @ 100 mls/hr IV Q1H DENISE Stop: 04/07/20 21:59 Magnesium Sulfate (Magnesium Sulfate 2gm/50ml) 2 gm in 50 mls @ 25 mls/hr IV ONCE ONE Stop: 04/07/20 19:34 Isosorbide Mononitrate (Isosorbide Mononitrate Er 30 Mg Tab) 30 mg PO QDAY DENISE Metoprolol Tartrate (Metoprolol Tartrate 25 Mg Tab) 25 mg PO BID DENISE Morphine Sulfate (Morphine 2 Mg/1 Ml Inj) 2 mg IV Q5MIN PRN PRN Reason: Chest Pain Nitroglycerin (Nitroglycerin 0.4 Mg Tab Subl) 0.4 mg SL Q5M PRN PRN Reason: Chest Pain Sodium Chloride (Sodium Chloride 0.9% 10 Ml Flush Syringe) 10 ml IV BID DENISE Sodium Chloride (Sodium Chloride 0.9% 10 Ml Flush Syringe) 10 ml IV PRN PRN PRN Reason: LINE FLUSH Physical Examination Vital signs: Vital Signs Resp 14 04/06/20 20:54 Results - Laboratory Findings CBC and BMP: 04/07/20 02:57 04/07/20 15:36 PT/INR, D-dimer PT 16.2 Sec. (12.2-14.9) H 04/06/20 22:57 INR 1.30 (0.87-1.13) H 04/06/20 22:57 D-Dimer 5535.12 ng/mlDDU (0-234) H 04/06/20 22:57 Abnormal lab findings: Abnormal Labs 04/06/20 04/06/20 04/06/20 21:10 22:57 22:57 WBC 27.7 H RBC 2.82 L Hgb 8.3 L Hct 26.1 L RDW 18.2 H Seg Neuts % (Manual) 79.0 H Lymphocytes % (Manual) 8.5 L Monocytes % (Manual) 9.0 H Seg Neutrophils # Man 21.9 H Monocytes # (Manual) 2.5 H PT 16.2 H INR 1.30 H D-Dimer 5535.12 H Heparin Anti-Xa Level VBG pH Sodium Potassium Chloride Carbon Dioxide BUN Creatinine Glucose POC Glucose 533 H Calcium Phosphorus Magnesium Troponin T Albumin LDL Cholesterol Direct HDL Cholesterol 04/06/20 04/06/20 04/07/20 22:57 22:57 01:00 WBC RBC Hgb Hct RDW Seg Neuts % (Manual) Lymphocytes % (Manual) Monocytes % (Manual) Seg Neutrophils # Man Monocytes # (Manual) PT INR D-Dimer Heparin Anti-Xa Level VBG pH 7.059 L* Sodium 125 L Potassium Chloride 91.6 L Carbon Dioxide 3 L* BUN 33 H Creatinine 2.0 H Glucose 593 H* POC Glucose Calcium Phosphorus Magnesium Troponin T 0.343 H* 0.338 H* Albumin 2.5 L LDL Cholesterol Direct 40 L HDL Cholesterol 23 L 04/07/20 04/07/20 04/07/20 01:00 01:00 01:06 WBC RBC Hgb Hct RDW Seg Neuts % (Manual) Lymphocytes % (Manual) Monocytes % (Manual) Seg Neutrophils # Man Monocytes # (Manual) PT INR D-Dimer Heparin Anti-Xa Level VBG pH Sodium 128 L Potassium Chloride 94.7 L Carbon Dioxide 4 L* BUN 30 H Creatinine 2.1 H Glucose 585 H* POC Glucose 469 H Calcium 7.9 L Phosphorus 6.30 H Magnesium Troponin T Albumin LDL Cholesterol Direct HDL Cholesterol 04/07/20 04/07/20 04/07/20 02:46 02:57 02:57 WBC 26.6 H RBC 2.86 L Hgb 8.1 L Hct 26.8 L RDW 18.4 H Seg Neuts % (Manual) 75.0 H Lymphocytes % (Manual) Monocytes % (Manual) Seg Neutrophils # Man 20.0 H Monocytes # (Manual) 1.1 H PT INR D-Dimer Heparin Anti-Xa Level VBG pH Sodium Potassium Chloride Carbon Dioxide BUN Creatinine Glucose POC Glucose 399 H Calcium Phosphorus Magnesium Troponin T 0.361 H* Albumin LDL Cholesterol Direct HDL Cholesterol 04/07/20 04/07/20 04/07/20 02:57 03:54 04:45 WBC RBC Hgb Hct RDW Seg Neuts % (Manual) Lymphocytes % (Manual) Monocytes % (Manual) Seg Neutrophils # Man Monocytes # (Manual) PT INR D-Dimer Heparin Anti-Xa Level VBG pH Sodium 130 L Potassium 3.0 L Chloride Carbon Dioxide 3 L* BUN 35 H Creatinine 2.3 H Glucose 411 H POC Glucose 334 H 309 H Calcium 8.3 L Phosphorus 5.00 H D Magnesium Troponin T Albumin LDL Cholesterol Direct HDL Cholesterol 04/07/20 04/07/20 04/07/20 05:09 05:44 06:47 WBC RBC Hgb Hct RDW Seg Neuts % (Manual) Lymphocytes % (Manual) Monocytes % (Manual) Seg Neutrophils # Man Monocytes # (Manual) PT INR D-Dimer Heparin Anti-Xa Level VBG pH Sodium 132 L Potassium 2.7 L* Chloride Carbon Dioxide 6 L* BUN 36 H Creatinine 2.2 H Glucose 307 H POC Glucose 277 H 263 H Calcium 8.1 L Phosphorus Magnesium Troponin T Albumin LDL Cholesterol Direct HDL Cholesterol 04/07/20 04/07/20 04/07/20 07:15 07:56 09:00 WBC RBC Hgb Hct RDW Seg Neuts % (Manual) Lymphocytes % (Manual) Monocytes % (Manual) Seg Neutrophils # Man Monocytes # (Manual) PT INR D-Dimer Heparin Anti-Xa Level VBG pH Sodium 128 L 128 L Potassium 2.7 L* 3.2 L Chloride Carbon Dioxide 10 L 10 L BUN 38 H 39 H Creatinine 2.3 H 2.3 H Glucose 263 H 279 H POC Glucose 251 H Calcium 7.9 L 8.0 L Phosphorus Magnesium Troponin T Albumin LDL Cholesterol Direct HDL Cholesterol 04/07/20 04/07/20 04/07/20 09:00 09:00 12:07 WBC RBC Hgb Hct RDW Seg Neuts % (Manual) Lymphocytes % (Manual) Monocytes % (Manual) Seg Neutrophils # Man Monocytes # (Manual) PT INR D-Dimer Heparin Anti-Xa Level VBG pH Sodium Potassium Chloride Carbon Dioxide BUN Creatinine Glucose POC Glucose 231 H 194 H Calcium Phosphorus Magnesium Troponin T 0.391 H* Albumin LDL Cholesterol Direct HDL Cholesterol 04/07/20 04/07/20 04/07/20 14:05 15:36 15:36 WBC RBC Hgb Hct RDW Seg Neuts % (Manual) Lymphocytes % (Manual) Monocytes % (Manual) Seg Neutrophils # Man Monocytes # (Manual) PT INR D-Dimer Heparin Anti-Xa Level < 0.10 L VBG pH Sodium 129 L Potassium 3.2 L Chloride Carbon Dioxide 7 L* BUN 38 H Creatinine 2.5 H Glucose 206 H POC Glucose 170 H Calcium 7.9 L Phosphorus Magnesium 1.50 L Troponin T Albumin LDL Cholesterol Direct HDL Cholesterol 04/07/20 16:58 WBC RBC Hgb Hct RDW Seg Neuts % (Manual) Lymphocytes % (Manual) Monocytes % (Manual) Seg Neutrophils # Man Monocytes # (Manual) PT INR D-Dimer Heparin Anti-Xa Level VBG pH Sodium Potassium Chloride Carbon Dioxide BUN Creatinine Glucose POC Glucose 191 H Calcium Phosphorus Magnesium Troponin T Albumin LDL Cholesterol Direct HDL Cholesterol
[2020-04-07] MEDS ORDERED: PANTOPRAZOLE 40 MG INJ IV SCH (19:00)
[2020-04-07 19:46] VITALS: BP 117/56
[2020-04-07 20:10] LABS: Calcium 7.4 mg/dL (8.4-10.2)
[2020-04-07] MEDS ORDERED: NORepinephrine/NS 4 MG-250 ML 4 MG/250 ML BAG IV ONE (20:54)
[2020-04-07] MEDS ORDERED: ROCURONIUM 50 MG/5 ML INJ IV ONE (20:57)
--- NOTE | 2020-04-07 21:21 | Event Note ---
Date: 04/07/20 The patient was evaluated in the emergency department for symptoms described in the history of present illness. He/she was evaluated in the context of the global COVID-19 pandemic, which necessitated consideration that the patient might be at risk for infection with the virus that causes COVID-19. Institutional protocols and algorithms that pertain to the evaluation of patients at risk for COVID-19 are in a state of rapid change based on information released by regulatory bodies including the CDC and federal and state organizations. These policies and algorithms were followed during the patient's care in the emergency department. Please note that these policies, procedures and recommendations changed on a rapid basis. Please note that this patient is not signed out to myself. The patient was admitted last night to the hospitalist service, and has been boarding in the emergency room. Nurse Morocho has brought this patient to my attention, as the patient had a convulsive event, that was not witnessed by myself. The nursing team is concerned about the patient's breathing and clinical status. I have gone by to emergently evaluate the patient, and have simultaneously instructed nursing team to page the internal medicine admitting staff. On my initial evaluation, patient is laying down on her stretcher, with no purposeful movement, or convulsive movements. The patient noted to be breathing spontaneously, but is bradypneic. Stat Accu-Chek greater than 200, however, patient now agonal he breathing. Nursing team informs me that patient is a full code, and patient does not appear to have a gag reflex, and is not protecting her airway. She is therefore emergently and administratively consented by myself for intubation for airway protection. Patient receives [id number] ventilation, and nasal cannula oxygenation at 15 L/min. She is induced with ketamine, 100 mg, and video laryngoscopy is performed with a curved Jason 3 video laryngoscope blade, and a 7.5 endotracheal tube is inserted easily through the trachea. Patient has appropriate post capnography intubation color change, and the tube is visualized by myself, nursing team, and respiratory therapy to have passed through the vocal cords. Patient then arrested, patient resuscitated as per standard ACLS interventions. Please see nursing team code sheet. Please note that nurse practitioner on the internal medicine service, Isabella Lawrence, was present, and assisted in patient's resuscitation. Pulses were then reobtained, and therefore, we will defer post intubation and resuscitation management to the internal medicine team. Prognosis is guarded and condition is critical
[2020-04-07] MEDS ORDERED: METOPROLOL TARTRATE 25 MG TAB PO SCH (22:00)
--- NOTE | 2020-04-07 22:19 | Event Note ---
Date: 04/07/20 A CODE SHIRLEY was called. I presented to the bedside and the patient was found to be in asystolic arrest. The patient was treated" with ACLS protocol with return of perfusing cardiac rhythm. Patient was initially found to have a systolic blood pressure in the 50s. Patient again was found to have asystolic arrest. Patient treated in accordance with ACLS protocol. Patient was found to have pupils that was fixed and dilated, patient had absent breath sounds. Patient did not have any spontaneous respiratory effort. The patient was pronounced at 2139 hrs. 90 minutes critical care time was spent conducting bedside basic care. Patient family notified.
--- NOTE | 2020-04-07 22:20 | Death Note ---
Note Date of : 04/07/20 Time of : 21:39 Time Pronounced: 21:39 - Preliminary Cause of (problem) (1) Acute respiratory failure Preliminary cause of (2) Suspected 2019 novel coronavirus infection Preliminary cause of (3) ARF (acute renal failure) Preliminary cause of (4) DKA (diabetic ketoacidoses) Qualifiers: Diabetes mellitus type: type 2 Diabetes mellitus complication detail: without coma Qualified Code(s): E11.10 - Type 2 diabetes mellitus with ketoacidosis without coma Preliminary cause of
--- NOTE | 2020-04-08 01:16 | Consultation ---
PULMONARY CRITICAL CARE CONSULT NOTE CONSULTING PHYSICIAN: Dr. Yoan Rosas. REASON FOR CONSULTATION: Diabetic ketoacidosis, chest pain. CHIEF COMPLAINT AND HISTORY OF PRESENT ILLNESS: As follows: The patient is a 34-year-old female, morbidly obese with past medical history significant amongst other things for a diagnosis of diabetes, who presented to the Emergency Room complaining of aching all over. This has been going on for about a couple of weeks. She complained of shortness of breath, dyspnea on exertion. To me, she admitted to vomiting and abdominal pain. She also has a history of tobacco use and has a history of non-insulin dependent diabetes. She reported she was recently seen at [facility] for a heart attack. She also complained of chest pain at that time. She was evaluated in the Emergency Room and ultimately she was diagnosed with diabetic ketoacidosis, started on IV insulin drip and Intensive Care Unit admission was requested. Of note, she also was diagnosed with a non-ST elevation MO. When I stopped by to see her, she was resting in bed, feeling a little bit better but still complaining mostly of abdominal pain. Denied any nausea today or vomiting. She has denied any significant bleeding diathesis prior to being admitted to the hospital. Denied a history of GI bleed, hematemesis, or hematuria. This really is as much of the history of presentation as I have. PAST MEDICAL HISTORY: Diabetes, hypertension, gastroparesis. She is obese, morbidly so and if her history is true, a history of coronary artery disease. PAST SURGICAL HISTORY: Denies. MEDICATIONS: The medications she was on, at the time I stopped by to see, were reviewed. Pertinent medications include the following: Tylenol 650 mg p.o. q. 6 hours p.r.n. mild pain or fevers, aspirin 81 mg p.o. daily, Lipitor 40 mg p.o. at bedtime, Plavix 75 mg p.o. daily, heparin drip. IV heparin drip was going per ACS protocol. Insulin drip was going at 3 units per hour, Imdur 30 mg p.o. daily. She received 2 grams of magnesium sulfate IV replacement, metoprolol 25 mg 1 tab p.o. b.i.d., once she starts taking p.o. meds, morphine sulfate 2 mg IV every 5 minutes p.r.n. chest pain as well as sublingual nitroglycerin 0.4 mg sublingual every 5 minutes p.r.n. chest pain. She has had potassium replacement and also she is on D5 half NS drip with 20 of K per liter at 125 mL per hour. ALLERGIES: No known drug allergies. DIET: Obese lady. Denies acute weight loss or gain in the preceding few weeks to months. FAMILY AND SOCIAL HISTORY: Lives in the community. Denies alcohol, illicit drug use or abuse. She has, she tells me, a less than [id number] tobacco smoking history. FAMILY HISTORY: Otherwise, noncontributory. REVIEW OF SYSTEMS: No loss of consciousness. No new onset seizures. No new onset focal weakness. No gross hematochezia or melena. No gross hematuria or dysuria. She has generalized body aches. She denies heat or cold intolerance. Denies polydipsia or polyuria. Complete 13-system review of systems obtained. Pertinent positives and/or negatives as in body of history above, otherwise noncontributory. PHYSICAL EXAMINATION: VITAL SIGNS: At presentation, she was afebrile, temperature 97.6 degrees Fahrenheit, pulse 102, respiratory rate as high as 41, blood pressure 144/118. O2 sats were 99%. Inspired oxygen concentration at that time was not recorded. When I stopped by to see her, O2 sats were 98% and that was on room air. GENERAL: She is a young, obese female, normocephalic, atraumatic, resting in bed with mildly increased respiratory effort at rest. HEAD, EYES, EARS, NOSE AND THROAT: Anicteric. No conjunctival erythema. Oropharynx was dry. She has a large neck circumference. No gross jugular venous distention, no thyromegaly. NECK: Grossly, there were no palpable lymph nodes in the supraclavicular or submandibular lymph node chains. LUNGS: Auscultation of both lung mortensen were unremarkable. Lungs are clear bilaterally with good bilateral air movement. Please note, she has a right IJ central venous access. ABDOMEN: Soft but distended, mildly tender diffusely. Bowel sounds are positive, but hypoactive. No gross palpable hepatosplenomegaly. EXTREMITIES: Without overt digital clubbing, no cyanosis, no pedal edema. Pedal pulses are 2+ bilaterally. NEUROLOGIC: Pupils are equal, round, about 3 mm, reactive to light. Extraocular muscle movements are intact. She moves all 4 extremities spontaneously. SKIN: Normal turgor in the areas examined without overt cellulitis or rash. Please see the wound care nurses' notes and registered nurse for full description of her skin. PSYCHIATRIC: Mood and affect were anxious. LABORATORY DATA: From my review are as follows: Admission white cell count 27,700, hemoglobin 8.3, hematocrit 26.1, platelet count 423. No band forms of significance on the manual differential. D-dimer was up at 5535. INR 1.3. Venous blood gas showed a pH of 7.06. Serum sodium was 125, potassium 3.6, chloride 92, bicarbonate was 3, BUN 33, creatinine 2.0, glucose 593. Ketones were large, troponin 0.34. Otherwise, liver function tests within normal limits. Urine test was negative. LDL cholesterol 40. Alcohol level less than 0.01%. Troponin is up to 0.391 on the third draw. No blood cultures. IMAGING DATA: Chest x-ray was done. I have reviewed the chest x-ray. She also has an echocardiogram done. The chest x-ray essentially shows gross cardiomegaly, hypoventilation. No overt pulmonary edema. The right IJ tip appears to be going into the brachiocephalic and axillary veins. No gross pneumothorax. No gross bony fractures. A 2D echo reveals normal ejection fraction; however, abnormal diastolic filling. Right ventricular systolic function is described as normal; however, RV systolic pressure measured at 40 mmHg. ASSESSMENT: 1. Diabetic ketoacidosis. 2. Chest pain. 3. Non-ST elevation myocardial infarction. 4. Obesity. 5. History of tobacco abuse. 6. Hypertension, poorly controlled. 7. Severe metabolic acidosis. 8. Leukocytosis, presumably stress leukocytosis. 9. Elevated serum D-dimers. PLAN: I do agree with institution of the DKA protocol and IV insulin therapy. Electrolytes will be followed closely and replaced as necessary. Volume resuscitation will continue. I am certainly bothered by the elevated D-dimers in the setting of this patient with chest pain. The question is whether there may be an element of venous thromboembolic phenomenon at play. She does not have any clinical signs or symptoms of a significant deep venous thrombosis. I believe she will benefit from a V/Q scan. Dopplers have been done of the lower extremities and there was no sonographic evidence of a DVT. We will continue with IV heparin therapy, both for the non-ST elevation myocardial infarction but also for possible venous thromboembolic phenomenon. I will order a V/Q scan for tomorrow. We will get a procalcitonin level to better evaluate the true infectious potential of this leukocytosis. I will elect to start her empirically on Levaquin monotherapy and deescalate based on results of clinical and microbiologic data. I will get blood cultures also. I will put her on a single dose PPI therapy, especially while she is on full anticoagulation. Chronic disease medications will be deferred to the attending physician. Flu and pneumonia vaccination will be addressed per protocol. Better blood pressure control will be of benefit definitely. Her most recent blood pressure is actually trending low, so we will continue the volume resuscitation. We will also be getting a lactic acid level to help guide clinical decision making. Thank you very much for the consult. We will follow along and make further recommendations as picture progresses/becomes clearer. She is critically ill, at high risk of from cardiopulmonary and hematologic system decompensation. Of note, she may benefit from surgery evaluation if the abdominal pain persists. In the meantime, I will get a KUB in light of the significant distention. Thank you very much for the consult. We will follow along and make further recommendations as picture progresses/becomes clearer. JOB# [id number] ROBB/AILYN
[2020-04-08] MEDS ORDERED: CLOPIDOGREL 75 MG TAB PO SCH (10:00)
[2020-04-08] MEDS ORDERED: ASPIRIN EC 325 MG TAB PO SCH (10:00)
[2020-04-08] MEDS ORDERED: ASPIRIN 81 MG TAB CHEW PO SCH (10:00)
== END 2020-04-07 21:43 ==
LOC: ED 16:45 → CC1 04-07 01:04
PROVIDERS: ADMIT Internal Medicine Geriatric Medicine; ATTEND Internal Medicine
PROC: 06HY33Z Insertion of Infusion Device into Lower Vein, Percutaneous Approach (ICD-10-PCS; principal; 2020-04-06)
PROC: 05HY33Z Insertion of Infusion Device into Upper Vein, Percutaneous Approach (ICD-10-PCS; 2020-04-06)
PROC: B543ZZA Ultrasonography of Right Jugular Veins, Guidance (ICD-10-PCS; 2020-04-06)
PROC: B54BZZA Ultrasonography of Right Lower Extremity Veins, Guidance (ICD-10-PCS; 2020-04-06)
DX: I21.4 Non-ST elevation (NSTEMI) myocardial infarction (principal); E11.10 Type 2 diabetes mellitus with ketoacidosis without coma; J96.00 Acute respiratory failure, unspecified whether with hypoxia or hypercapnia; N17.9 Acute kidney failure, unspecified; E87.2 Acidosis; E87.1 Hypo-osmolality and hyponatremia; I25.10 Atherosclerotic heart disease of native coronary artery without angina pectoris; I10 Essential (primary) hypertension; F17.200 Nicotine dependence, unspecified, uncomplicated; E11.43 Type 2 diabetes mellitus with diabetic autonomic (poly)neuropathy; K31.84 Gastroparesis; E66.9 Obesity, unspecified; D64.9 Anemia, unspecified; D72.829 Elevated white blood cell count, unspecified; E87.6 Hypokalemia; Z79.899 Other long term (current) drug therapy; Z95.5 Presence of coronary angioplasty implant and graft
CPT/HCPCS: 36415; 71045; 80048; 80053; 80061; 80320; 82010; 82140; 82805; 82962; 83690; 83735; 84100; 84145; 84484; 84703; 85007; 85025; 85379; 85520; 85610; 85730; 93005; 93306; 93970; G0378; C9113; G0480; J1644; J1815; J1956; J2270; J3475; J3480; J7030